=== PATIENT | female | born 1995 | race Caucasian/White ===

== ENCOUNTER 2020-11-25 01:07 | Inpatient (IN) | payer BC ==
[2020-11-25 04:01] LABS: CORONAVIRUS COVID-19 NAA NEGATIVE (NEGATIVE)
[2020-11-25] MEDS ORDERED: Sodium Chloride 0.9% 1,000 ML IV SCH (06:00)
[2020-11-25] MEDS ORDERED: Sodium Chloride 0.9% 10 ML Syringe FLUSH PRN (07:34)
[2020-11-25] MEDS ORDERED: fentaNYL 100 MCG/2 ML SDV IVPUSH PRN (07:34)
[2020-11-25] MEDS ORDERED: Ondansetron 4 MG Tab.DIS PO PRN (07:34)
--- NOTE | 2020-11-25 07:44 | PCM.LDHP ---
L&D History of Present Illness - General Date of Service: 11/25/20 (PROM) Admit Problem/Dx: Patient Status Order with Admit Dx/Problem 11/25/20 02:39 Admission Status [Patient Status] [ADT] Routine 11/25/20 07:34 Patient Status [ADT] Routine Admission Diagnosis/Problem Admission Diagnosis/Problem Labor established Source of Information: Patient History Limitations: Reports: No Limitations - History of Present Illness Introduction:: This 25 year old G1 who is 36 6/7 weeks presented with rupture of membranes at home without labor. She describes a large amount of clear fluid. OVer the night a few irregular contractions. GBS status unknown. Antibiotics started is allergic to PCN, Clindamycin used instead. At 0600 Pitocin augmentation started. Contractions are now increasing. Had her first Covid vaccine November 14 HX of asthma and anxiety non smoker Labs: GBS unknown HIV neg Rubella immune ABO O pos Timing/Duration: Reports: minutes: (2-3) Location, : Reports: Abdomen, Lower back Quality: Reports: Pressure Severity: Moderate Improves with: Reports: Movement Worsens with: Reports: None - Related Data Allergies/Adverse Reactions: Allergies Allergy/AdvReac Type Severity Reaction Status Date / Time amoxicillin Allergy Hives Verified 11/25/20 01:48 Home Medications: Home Meds Cetirizine [ZyrTEC] 10 mg PO DAILY 11/25/20 [History] Doxylamine Succinate [Unisom Sleep Aid] 25 mg PO BEDTIME PRN 11/25/20 [History] Ondansetron [Ondansetron ODT] 4 mg PO Q6H PRN 11/25/20 [History] Pnv No.103/Folic/Om3s/Fish Oil [ Gummies] 1 tab PO DAILY 11/25/20 [History] Past Medical History Respiratory History: Reports: Asthma 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 (Approximate): ([facility] 12/17/20) Psychiatric History: Reports: Depression - Past Surgical History HEENT Surgical History: Reports: Tonsillectomy Social & Family History - Family History Family Medical History: No Pertinent Family History - Tobacco Use Tobacco Use Status *Q: Never Tobacco User Second Hand Smoke Exposure: No - Caffeine Use Caffeine Use: Reports: Coffee, Soda - Recreational Drug Use Recreational Drug Use: No H&P Review of Systems - Review of Systems: Review Of Systems: See Below General: Reports: No Symptoms HEENT: Reports: No Symptoms Pulmonary: Reports: No Symptoms Cardiovascular: Reports: No Symptoms Gastrointestinal: Reports: No Symptoms Genitourinary: Reports: No Symptoms Musculoskeletal: Reports: No Symptoms Skin: Reports: No Symptoms Psychiatric: Reports: Anxiety Neurological: Reports: No Symptoms Hematologic/Lymphatic: Reports: No Symptoms Immunologic: Reports: No Symptoms L&D Exam - Exam Exam: See Below - Vital Signs Vital Signs: Last Vital Signs Temp 98.9 F 11/25/20 06:10 Pulse 93 11/25/20 06:10 Resp 16 11/25/20 06:10 BP 135/83 11/25/20 06:10 Pulse Ox 99 11/25/20 06:10 Weight: 203 lb - OB Specific Contraction Duration (sec): 40-90 Contraction Frequency (min): 2-3 Contraction Intensity: Mild to Moderate Movement: Active Heart Tones: Present Heart Rate (FHR) Variability: Moderate (6-25 bmp) Presentation: Vertex Estimated Weight: 7 pounds - Turcios Score Turcios Score Cervix Position: Midposition Turcios Score Consistency: Soft Turcios Score Effacement: 51-70% Turcios Score Dilation: 1-2 cm Turcios Score Infant's Station: -1 ,0 Turcios Score Total: 8 - Exam General: Alert, Oriented HEENT: PERRLA Neck: Supple Lungs: Normal Respiratory Effort Cardiovascular: Regular Rate GI/Abdominal Exam: Soft Rectal Exam: Normal Exam Genitourinary: Enlarged uterus Back Exam: Normal Inspection Extremities: No Pedal Edema Skin: Warm, Dry, Intact Neurological: Cranial Nerves Intact - Patient Data Lab Results Last 24 hrs: Laboratory Results - last 24 hr 11/25/20 11/25/20 11/25/20 Range/Units 01:26 01:27 02:40 WBC (4.5-11.0) K/uL RBC (3.30-5.50) M/uL Hgb (12.0-15.0) g/dL Hct (36.0-48.0) % MCV (80-98) fL MCH (27-31) pg MCHC (32-36) % Plt Count (150-400) K/uL Neut % (Auto) (36-66) % Lymph % (Auto) (24-44) % Arroyo % (Auto) (2-6) % Eos % (Auto) (2-4) % Baso % (Auto) (0-1) % Urine Color Yellow (YELLOW) Urine Appearance Turbid A (CLEAR) Urine pH 7.0 (5.0-8.0) Ur Specific Era 1.015 (1.008-1.030) Urine Protein 100 H (NEGATIVE) mg/dL Urine Glucose (UA) Negative (NEGATIVE) mg/dL Urine Ketones Negative (NEGATIVE) mg/dL Urine Occult Blood Trace-lysed H (NEGATIVE) Urine Nitrite Negative (NEGATIVE) Urine Bilirubin Negative (NEGATIVE) Urine Urobilinogen 0.2 (0.2-1.0) EU/dL Ur Leukocyte Esterase Negative (NEGATIVE) Urine RBC 0-5 (0-5) Urine WBC 0-5 (0-5) Ur Epithelial Cells Many Amorphous Sediment Few Urine Bacteria Many Urine Mucus Not seen Membrane Rupture Positive H (NEGATIVE) Urine Opiates Screen (NEGATIVE) Ur Oxycodone Screen (NEGATIVE) Urine Methadone Screen (NEGATIVE) Ur Propoxyphene Screen (NEGATIVE) Ur Barbiturates Screen (NEGATIVE) Ur Tricyclics Screen (NEGATIVE) Ur Phencyclidine Scrn (NEGATIVE) Ur Amphetamine Screen (NEGATIVE) U Methamphetamines Scrn (NEGATIVE) Urine MDMA Screen (NEGATIVE) U Benzodiazepines Scrn (NEGATIVE) U Cocaine Metab Screen (NEGATIVE) U Marijuana (THC) Screen (NEGATIVE) Influenza Type A RNA Negative (NEGATIVE) RSV RNA (INAAT) Negative (NEGATIVE) Influenza Type B RNA Negative (NEGATIVE) SARS-CoV-2 RNA (LULA) Negative (NEGATIVE) 11/25/20 11/25/20 Range/Units 02:56 02:57 WBC 10.6 (4.5-11.0) K/uL RBC 4.54 (3.30-5.50) M/uL Hgb 14.0 (12.0-15.0) g/dL Hct 42.9 (36.0-48.0) % MCV 95 (80-98) fL MCH 31 (27-31) pg MCHC 33 (32-36) % Plt Count 290 (150-400) K/uL Neut % (Auto) 60 (36-66) % Lymph % (Auto) 26 (24-44) % Arroyo % (Auto) 11 H (2-6) % Eos % (Auto) 2 (2-4) % Baso % (Auto) 1 (0-1) % Urine Color (YELLOW) Urine Appearance (CLEAR) Urine pH (5.0-8.0) Ur Specific Era (1.008-1.030) Urine Protein (NEGATIVE) mg/dL Urine Glucose (UA) (NEGATIVE) mg/dL Urine Ketones (NEGATIVE) mg/dL Urine Occult Blood (NEGATIVE) Urine Nitrite (NEGATIVE) Urine Bilirubin (NEGATIVE) Urine Urobilinogen (0.2-1.0) EU/dL Ur Leukocyte Esterase (NEGATIVE) Urine RBC (0-5) Urine WBC (0-5) Ur Epithelial Cells Amorphous Sediment Urine Bacteria Urine Mucus Membrane Rupture (NEGATIVE) Urine Opiates Screen Negative (NEGATIVE) Ur Oxycodone Screen Negative (NEGATIVE) Urine Methadone Screen Negative (NEGATIVE) Ur Propoxyphene Screen Negative (NEGATIVE) Ur Barbiturates Screen Negative (NEGATIVE) Ur Tricyclics Screen Negative (NEGATIVE) Ur Phencyclidine Scrn Negative (NEGATIVE) Ur Amphetamine Screen Negative (NEGATIVE) U Methamphetamines Scrn Negative (NEGATIVE) Urine MDMA Screen Negative (NEGATIVE) U Benzodiazepines Scrn Negative (NEGATIVE) U Cocaine Metab Screen Negative (NEGATIVE) U Marijuana (THC) Screen Negative (NEGATIVE) Influenza Type A RNA (NEGATIVE) RSV RNA (INAAT) (NEGATIVE) Influenza Type B RNA (NEGATIVE) SARS-CoV-2 RNA (LULA) (NEGATIVE) Result Diagrams: 11/25/20 02:56 - Problem List (1) Anxiety SNOMED Code(s): 44926738 ICD Code: F41.9 - ANXIETY DISORDER, UNSPECIFIED Status: Acute Current Vi sit: Yes (2) Asthma SNOMED Code(s): 466094936 ICD Code: J45.909 - UNSPECIFIED ASTHMA, UNCOMPLICATED Status: Acute Current Visit: Yes Qualifiers: Asthma severity: mild Asthma persistence: intermittent Asthma complication type: uncomplicated Qualified Code(s): J45.20 - Mild intermittent asthma, uncomplicated (3) SNOMED Code(s): 42747301 ICD Code: Z34.90 - ENCNTR FOR SUPRVSN OF NORMAL , UNSP, UNSP TRIMESTER Status: Acute Current Visit: Yes Qualifiers: Weeks of gestation: 36 weeks Qualified Code(s): Z3A.36 - 36 weeks gestation of (4) PROM (premature rupture of membranes) SNOMED Code(s): 52941744 ICD Code: O42.90 - NICOLE ROM, 7TH0 BETW RUPT & ONST LABR, UNSP WEEKS OF GEST Status: Acute Current Visit: Yes Qualifiers: PROM gestational age: full term Problem List Initiated/Reviewed/Updated: Yes Orders Last 24hrs: Active Orders 24 hr Category Date Time Status Patient Status [ADT] Routine ADT 11/25/20 07:34 Ordered Antiembolic Devices [RC] .Routine Care 11/25/20 07:36 Ordered Communication Order [RC] ASDIRECTED Care 11/25/20 07:34 Ordered Communication Order [RC] Per Unit Routine Care 11/25/20 07:38 Ordered Communication Order [RC] Per Unit Routine Care 11/25/20 07:38 Ordered Communication Order [RC] Per Unit Routine Care 11/25/20 07:38 Ordered Heart Tones [RC] PER UNIT ROUTINE Care 11/25/20 07:34 Ordered Non Stress Test [RC] Click to Edit Care 11/25/20 07:34 Ordered May Shower [RC] ASDIRECTED Care 11/25/20 07:34 Ordered Nitrous Oxide Delivery [RC] ASDIRECTED Care 11/25/20 07:38 Ordered Notify Provider Vital Signs [RC] PRN Care 11/25/20 07:34 Ordered Notify Provider [RC] PRN Care 11/25/20 07:34 Ordered OB Check [OM.PC] Click to Edit Care 11/25/20 01:25 Ordered Oxygen Therapy [RC] ASDIRECTED Care 11/25/20 07:38 Ordered Pulse Oximetry [RC] ASDIRECTED Care 11/25/20 07:38 Ordered Up ad Judith [RC] ASDIRECTED Care 11/25/20 07:34 Ordered VTE/DVT Education [RC] Click to Edit Care 11/25/20 07:36 Ordered Verify Patient Consent Obtain [RC] ASDIRECTED Care 11/25/20 07:38 Ordered Vital Signs [RC] PER UNIT ROUTINE Care 11/25/20 07:34 Ordered Vital Signs [RC] PER UNIT ROUTINE Care 11/25/20 07:38 Ordered Clear Liquid Diet [DIET] Diet 11/25/20 Lunch Ordered Clindamycin Phosphate [Cleocin] 900 mg Med 11/25/20 11:00 Active Sodium Chloride 0.9% [Normal Saline] 100 ml IV Q8H Ondansetron [Zofran ODT] Med 11/25/20 07:34 Ordered 4 mg PO Q4H PRN Oxytocin/Normal Saline [Pitocin in NS 20 Units/1,000 ML Med 11/25/20 06:00 Active ] 20 unit in 1,000 ml IV TITRATE Sodium Chloride 0.9% [Normal Saline] 1,000 ml Med 11/25/20 06:00 Active IV ASDIRECTED Sodium Chloride 0.9% [Saline Flush] Med 11/25/20 07:34 Ordered 10 ml FLUSH ASDIRECTED PRN fentaNYL [Sublimaze] Med 11/25/20 07:34 Ordered 100 mcg IVPUSH Q1H PRN DVT/VTE Prophylaxis Reflex [OM.PC] Routine Oth 11/25/20 07:34 Ordered Isolation [COMM] Stat Ot 11/25/20 02:41 Ordered Saline Lock Insert [OM.PC] Routine Oth 11/25/20 07:34 Ordered Resuscitation Status Routine Resus Stat 11/25/20 07:34 Ordered Medication Orders Fentanyl (Fentanyl 100 Mcg/2 Ml Sdv) 100 mcg IVPUSH Q1H PRN PRN Reason: Pain (moderate 4-6) Oxytocin/Sodium Chloride (Pitocin In Ns 20 Units/1,000 Ml) 20 unit in 1,000 mls @ 3 mls/hr IV TITRATE CURTIS; Protocol Last Admin: 11/25/20 06:09 Dose: 1 munits/min, 3 mls/hr Documented by: MAE Sodium Chloride (Normal Saline) 1,000 mls @ 0 mls/hr IV ASDIRECTED [facility] Last Admin: 11/25/20 06:15 Dose: 25 mls/hr Documented by: MAE Clindamycin Phosphate 900 mg/ (Sodium Chloride) 106 mls @ 200 mls/hr IV Q8H CURTIS Ondansetron HCl (Ondansetron 4 Mg Tab.Dis) 4 mg PO Q4H PRN PRN Reason: Nausea/Vomiting Sodium Chloride (Sodium Chloride 0.9% 10 Ml Syringe) 10 ml FLUSH ASDIRECTED PRN PRN Reason: Keep Vein Open Assessment/Plan Comment:: 11/25/20 25 year old G1 36 6/7 week with PROM with labor augmentation with Pitocin unknown GBS status neg Covid Plan Pitocin for contractions Clindamycin for GBS Pain management per her request
[2020-11-25] MEDS ORDERED: Sodium Chloride 0.9% 1,000 ML IV ONE (08:44)
--- NOTE | 2020-11-25 10:03 | PCM.PNLD ---
Labor Progress Note - VS & Meds Vital Signs: Last Vital Signs Temp 98.5 F 11/25/20 07:30 Pulse 89 11/25/20 07:30 Resp 18 11/25/20 07:30 BP 133/78 11/25/20 07:30 Pulse Ox 96 11/25/20 07:30 Active Medications: Current Medications Fentanyl (Fentanyl 100 Mcg/2 Ml Sdv) 100 mcg IVPUSH Q1H PRN PRN Reason: Pain (moderate 4-6) Oxytocin/Sodium Chloride (Pitocin In Ns 20 Units/1,000 Ml) 20 unit in 1,000 mls @ 3 mls/hr IV TITRATE CURTIS; Protocol Last Admin: 11/25/20 06:09 Dose: 1 munits/min, 3 mls/hr Documented by: Sodium Chloride (Normal Saline) 1,000 mls @ 0 mls/hr IV ASDIRECTED [facility]TIS Last Admin: 11/25/20 06:15 Dose: 25 mls/hr Documented by: Clindamycin Phosphate 900 mg/ (Sodium Chloride) 106 mls @ 200 mls/hr IV Q8H CURTIS Ondansetron HCl (Ondansetron 4 Mg Tab.Dis) 4 mg PO Q4H PRN PRN Reason: Nausea/Vomiting Sodium Chloride (Sodium Chloride 0.9% 10 Ml Syringe) 10 ml FLUSH ASDIRECTED PRN PRN Reason: Keep Vein Open Discontinued Medications Clindamycin Phosphate 900 mg/ (Sodium Chloride) 56 mls @ 100 mls/hr IV Q8HR CURTIS Last Admin: 11/25/20 06:16 Dose: Not Given Documented by: Sodium Chloride (Normal Saline) 1,000 mls @ 999 mls/hr IV .BOLUS ONE Stop: 11/25/20 09:44 - Uterine Contractions Uterine Monitoring Mode: Palpation Contraction Frequency (min): 3-4 Contraction Duration (sec): 90-120 Contraction Intensity: Moderate Uterine Resting Tone: Soft - Monitoring Monitor Mode: Doppler/Auscultation Heart Rate (FHR) Baseline: 145 Heart Rate (FHR) Variability: Moderate (6-25 bmp) Accelerations: Present, 15x15 Decelerations: Late, Variable, Prolonged (>2x10 min) Strip Review: Category III - Vaginal Exam Dilation (cm): 3 Effacement (Percent): 75 Station: 0 Cervical Position: Midposition Sterile Vaginal Exam Performed By: Sara Rangel - Labor Progress (Free Text) Labor Progress: 11/25/20 PROM at 0030 last night. Pitocin augmentation this morning. contractions every 3 minutes. baby not tolerating contractions. Pitocin off, bolus fluids, position changes. Used Nitrous for pain management. Cat three strip Assessment Non reassuring strip in a G1 with PROM unknown GBS Plan c section delivery OB crew called and consent reviewed.
[2020-11-25] MEDS ORDERED: Oxytocin 10 Units/1 ML SDV ONE ×2 (10:10→10:13)
[2020-11-25] MEDS ORDERED: cefOXitin 1 GM Vial ONE (10:11)
[2020-11-25] MEDS ORDERED: ePHEDrine 50 MG/ML SDV ONE (10:12)
[2020-11-25] MEDS ORDERED: Meropenem 500 MG SDV ONE ×2 (10:12→10:15)
[2020-11-25] MEDS ORDERED: cefOXitin 2 GM Vial ONE (10:15)
[2020-11-25] MEDS ORDERED: Clindamycin Phosphate 900 MG in Sodium Chloride 0.9% 100 ML IV SCH (11:00)
[2020-11-25] MEDS ORDERED: Lactated Ringers 1,000 ML ONE (11:07)
[2020-11-25] MEDS ORDERED: Lidocaine 1% 0 ML ONE (11:14)
[2020-11-25] MEDS ORDERED: hydrOXYzine HCL 100 MG/2 ML SDV IM PRN (12:23)
[2020-11-25] MEDS ORDERED: Ondansetron 4 MG/2 ML SDV IVPUSH PRN (12:26)
[2020-11-25] MEDS ORDERED: HYDROmorphone/Normal Saline 15 MG/30 ML PCA IV PRN (12:27)
[2020-11-25] MEDS: HYDROmorphone 2 MG Tab PO PRN (12:32)
[2020-11-25] MEDS: Dextrose 5%-Lactated Ringers 1,000 ML IV SCH ×2 (12:39→19:33)
[2020-11-25] MEDS ORDERED: Naloxone 0.4 MG/ML SDV IV PRN (13:00)
[2020-11-25] MEDS: Acetaminophen 500 MG Tab PO SCH ×2 (13:06→19:48)
[2020-11-25] MEDS: cefOXitin 2 GM in Sodium Chloride 0.9% 50 ML IV SCH ×2 (16:22→21:43)
[2020-11-25] MEDS: Ibuprofen 600 MG Tab PO SCH ×2 (16:23→23:10)
[2020-11-26] MEDS: Dextrose 5%-Lactated Ringers 1,000 ML IV SCH (00:59)
[2020-11-26] MEDS: Acetaminophen 500 MG Tab PO SCH ×5 (01:23→18:30)
[2020-11-26] MEDS: cefOXitin 2 GM in Sodium Chloride 0.9% 50 ML IV SCH ×4 (04:13→21:57)
[2020-11-26] MEDS: Ibuprofen 600 MG Tab PO SCH ×4 (04:15→21:57)
[2020-11-26] MEDS ORDERED: Dextrose 5%-Lactated Ringers 1,000 ML IV SCH (07:19)
[2020-11-26] MEDS: Docusate Sodium 100 MG Cap PO SCH ×2 (09:21→20:35)
--- NOTE | 2020-11-26 09:31 | PN ---
DATE OF SERVICE: 11/26/2020 SUBJECTIVE: Alexis is postop day 1 following a section. She reports her pain is better controlled. 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 OBJECTIVE: GENERAL: Alexis is a pleasant 25-year-old female. She is alert and orientated. VITAL SIGNS: Last checked at 11/25/2020 at 1900, TPRs; 96, 93, 18, blood pressure 128/66, and her oximetry was checked on 11/26/2020 at 0725 at 97%. HEENT: Negative. NECK: Supple. HEART: Regular rate and rhythm. LUNGS: Clear. ABDOMEN: Dressing dry and in intact. EXTREMITIES: Without peripheral edema. ASSESSMENT: section for near-term with ruptured membranes and late decelerations. Date 11/25/2020. Surgeon: Danie Butterfield MD. PLAN: 1. Decrease IV to 100 mL per hour. 2. Regular diet. 3. Discontinue Diaz. 4. 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 5. May shower. 6. Saline lock IV if oral intake is 1000 mL. 7. Colace 100 mg b.i.d. orally. 8. We will evaluate p.r.n. or in the a.m. Lydia Arguelles PA-C /[id number]
[2020-11-26] MEDS: HYDROmorphone 2 MG Tab PO PRN ×3 (11:55→20:35)
--- NOTE | 2020-11-26 15:52 | OR ---
DATE OF PROCEDURE: 11/25/2020 SURGEON: Danie Butterfield MD PREOPERATIVE DIAGNOSIS: Near-term with ruptured membranes and development of late decelerations. POSTOPERATIVE DIAGNOSIS: Near-term with ruptured membranes and development of late decelerations. OPERATIVE PROCEDURE: section ([id number]). ANESTHESIA: Spinal. LANGUAGE SPECIALIST: Marley Westbrook CNM. INDICATIONS FOR PROCEDURE: This is a 25-year-old presenting with rupture of membranes early this morning. She has only progressed roughly 1 cm and during onset of labor. The patient now is noted to have some late decelerations. Due to this, decision was made to proceed with a section. Potential risks of the procedure were reviewed with the patient. She wishes to proceed. DETAILS OF PROCEDURE: The patient was taken to the operating room and after spinal anesthetic was placed, was positioned in the supine position with a roll underneath the right hip. A Diaz catheter was inserted, and the abdomen was prepped and draped. A Pfannenstiel incision was then made and carried down through the skin and subcutaneous tissue and rectus sheath. Subrectus sheath flaps were then raised superiorly and inferiorly in the midline. Peritoneum was then divided and the peritoneal reflection of the bladder on the uterus was reflected downward. Low transverse uterine segment incision was made. Of note, the placenta was immediately underneath the incision. This allowed rapid entry into the area of the uterine cavity, however, and a viable female was then easily delivered through a vertex presentation. Cord was clamped and cut. Routine care given off the field per Marley Westbrook CNM. The placenta and membranes were then delivered without difficulty. The patient was given IV and intrauterine Pitocin and IV cefoxitin. Good uterine contractions were noted. The uterus remained closed with 2 layers of 2-0 Vicryl stitch as was the peritoneal reflection of bladder on the uterus. Midline peritoneum and musculature were then approximated with a #2 Vicryl stitch as was the anterior rectus sheath. Subcutaneous tissue was approximated with some 2-0 Vicryl stitch. Subdermal tissues with 4-0 Vicryl stitch and the subcuticular stitch with 4-0 Vicryl stitch followed by surgical glue. The patient and mother were both taken from the operating room in satisfactory condition. Per ACOG guidelines, the assistance per nurse econometrics professor, Marley Westbrook, was indicated and necessary. Danie Butterfield MD /[id number]
[2020-11-27] MEDS: Acetaminophen 500 MG Tab PO SCH ×5 (00:31→23:45)
[2020-11-27] MEDS: HYDROmorphone 2 MG Tab PO PRN ×4 (00:31→23:45)
[2020-11-27] MEDS: Ibuprofen 600 MG Tab PO SCH ×4 (03:54→21:25)
[2020-11-27] MEDS: cefOXitin 2 GM in Sodium Chloride 0.9% 50 ML IV SCH (03:54)
[2020-11-27] MEDS: Docusate Sodium 100 MG Cap PO SCH ×2 (08:38→21:25)
--- NOTE | 2020-11-27 10:39 | PN ---
DATE OF SERVICE: 11/27/2020 SUBJECTIVE: Alexis reports her pain is controlled. Right now, it is a 3/10. She has been up ambulating, voiding without difficulty. Vital signs have been stable. REVIEW OF SYSTEMS: Remainder of review of systems negative for any pertinent positives and negatives. OBJECTIVE: GENERAL: Alexis is a pleasant 25-year-old female. She is alert and orientated. VITAL SIGNS: TPR 96.4, 87, 18, blood pressure 141/76. HEENT: Negative. NECK: Supple. HEART: Regular rate and rhythm. LUNGS: Clear. ABDOMEN: Negative. Incision looks good. It is glued and clean and dry. She is wearing abdominal binder. EXTREMITIES: Without peripheral edema. ASSESSMENT: section on 11/25/2020 for near-term with ruptured membranes and development of late deceleration. Date of procedure: 11/25/2020. Surgeon: Danie Butterfield MD. PLAN: 1. Remove saline lock. 2. Continue ambulation and use of incentive spirometer. 3. We will evaluate p.r.n. or in a.m. Lydia Arguelles PA-C /[id number]
[2020-11-27] MEDS ORDERED: Lanolin 100% Cream 40 GM Tube TOP PRN (14:24)
[2020-11-28] MEDS: Ibuprofen 600 MG Tab PO SCH ×2 (03:07→09:38)
[2020-11-28] MEDS: Acetaminophen 500 MG Tab PO SCH (06:36)
[2020-11-28] MEDS: HYDROmorphone 2 MG Tab PO PRN (09:38)
[2020-11-28] MEDS: Docusate Sodium 100 MG Cap PO SCH (09:38)
--- NOTE | 2020-11-29 07:25 | DISCH ---
ADMISSION DIAGNOSES: 1. Premature rupture of membranes. 2. 36-6/7 weeks . 3. Late deceleration. DISCHARGE DIAGNOSIS: section. POSTOPERATIVE DIAGNOSIS: Near-term with ruptured membranes and development of late deceleration. Date of procedure, 11/25/2020. 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 She progressed to approximately 1 cm and was noted to have late decelerations. After preoperative evaluation and discussion of possible risks and possible complications, she wishes to proceed with section. HOSPITAL COURSE: No operative complications. Delivery of viable female. On postoperative day 1, IV was decreased to 100 mL per hour. Diaz catheter discontinued. Regular diet, and she was started on oral pain medications. On postoperative day 2, saline lock was removed. Pain was controlled with oxycodone, and in the evening, she had 2 bowel movements. She was able to be discharged to home without any complications on 11/28/2020. PHYSICAL EXAMINATION: GENERAL: Alexis Vann is a pleasant 25-year-old female. She is alert and orientated. Height is 5 feet 1.8 inches. Weight is 202 pounds. VITAL SIGNS: TPR 96.9, 81, 16. Blood pressure 135/72. HEENT: Negative. NECK: Supple. HEART: Regular rate and rhythm. LUNGS: Clear. ABDOMEN: incision is glued, clean, dry, healing well. DISPOSITION: Discharged to home. CONDITION: Stable and improving. FOLLOWUP APPOINTMENT: With Lydia Arguelles PA-C, on 12/04/2020 at 10 a.m. HOME MEDICATIONS: 1. Colace 100 mg oral b.i.d., #60. 2. Dilaudid 2 mg every 6 hours p.r.n. pain, #28. 3. Ibuprofen 600 mg oral q.6 hours p.r.n. pain, #50. 4. Tylenol Extra Strength 1000 mg every 6 hours p.r.n. pain, #100. 5. She is to resume home medication of Zyrtec 10 mg oral daily and vitamins. 6. Zofran 4 mg every 6 hours p.r.n. nausea. 7. Unisom sleep aid p.r.n. DIET: Usual diet as tolerated. Drink 8 to 10 glasses of water a day. ACTIVITY: As tolerated. No lifting over 10 pounds for 6 weeks, but you can lift baby in car seat. Shower/bathing: May shower. No tub bathing, swimming until incision is healed about 6 to 8 weeks. Notify provider if any fever, increased pain, swelling, redness, drainage, nausea, vomiting. Wound incision care: Keep site clean and dry. Wear abdominal binder for 6 weeks. /[id number]
== END 2020-11-28 11:37 | disposition home or self-care (01) | DRG 540 ==
LOC: JP.OBCHECK 01:07 → JP.OB 03:38 → OBSVTOIN 10:44 → JP.OB 10:44 → JP.MS 10:45
PROVIDERS: ADMIT Nurse Practitioner Family; ATTEND Nurse Practitioner Family
PROC: 10D00Z1 Extraction of Products of Conception, Low, Open Approach (ICD-10-PCS; principal; 2020-11-25)
DX: O42.02 Full-term premature rupture of membranes, onset of labor within 24 hours of rupture (principal); Z37.0 Single live birth; O76 Abnormality in fetal heart rate and rhythm complicating labor and delivery; Z20.822 Contact with and (suspected) exposure to COVID-19; O99.62 Diseases of the digestive system complicating childbirth; J45.20 Mild intermittent asthma, uncomplicated; Z88.0 Allergy status to penicillin; Z3A.36 36 weeks gestation of pregnancy
CPT/HCPCS: 0241U; 36415; 51702; 80305-QW; 81001; 84112; 85025; 88307; 94762; 99211; A9270-GY; J0694; J1170; J2185; J2405; J2590; J3410; J3490; J7030; J7120; J7121

== ENCOUNTER 2020-12-02 13:42 | Emergency (ER) | payer BC ==
[2020-12-02] MEDS ORDERED: Sulfamethoxazole/Trimethoprim 800-160 MG Tab PO ONE (14:30)
--- NOTE | 2020-12-02 14:37 | EDM.PDOC ---
ED HPI GENERAL MEDICAL PROBLEM - General Chief Complaint: Genitourinary Problem Stated Complaint: POSSIBLE YEAST INFECTION Time Seen by Provider: 12/02/20 14:25 Source of Information: Reports: Patient, Old Records, RN History Limitations: Reports: No Limitations - History of Present Illness INITIAL COMMENTS - FREE TEXT/NARRATIVE: 25 yo female with recent presents with recent onset of dysuria/frequency. No fever, nausea or flank pain, or fever. Onset: Today, Gradual Onset Date: 12/02/20 Duration: Hour(s):, Constant Location: Reports: Pelvis (urethral). Denies: Back Quality: Reports: Burning Severity: Mild Improves with: Reports: None Worsens with: Reports: Other (? time) Context: Reports: Other (See HPI) Associated Symptoms: Reports: No Other Symptoms. 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: Reports: Other (see below) (none) Abdomen Pain Score (Numeric/FACES): 2 - Related Data Allergies Allergy/AdvReac Type Severity Reaction Status Date / Time amoxicillin Allergy Hives Verified 12/02/20 14:01 Home Meds: Home Meds Cetirizine [ZyrTEC] 10 mg PO DAILY 11/25/20 [History] Doxylamine Succinate [Unisom Sleep Aid] 25 mg PO BEDTIME PRN 11/25/20 [History] Ondansetron [Ondansetron ODT] 4 mg PO Q6H PRN 11/25/20 [History] Pnv No.103/Folic/Om3s/Fish Oil [ Gummies] 1 tab PO DAILY 11/25/20 [History] Acetaminophen [Tylenol Extra Strength] 1,000 mg PO Q6H #100 tablet 11/28/20 [Rx] Docusate Sodium [Colace] 100 mg PO BID #60 cap 11/28/20 [Rx] HYDROmorphone [Dilaudid] 2 mg PO Q6H PRN #28 tablet 11/28/20 [Rx] Ibuprofen [Motrin] 600 mg PO Q6H #50 tablet 11/28/20 [Rx] Lanolin [Lansinoh HPA] 0 gm TOP ASDIRECTED PRN tube 11/28/20 [Rx] Sulfamethoxazole/Trimethoprim [Bactrim Ds Tablet] 1 each PO Q12H #9 tablet 12/02/20 [Rx] Past Medical History Respiratory History: Reports: Asthma 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 Denies: Flank Pain, Hematuria Skin: Reports: Wound (surgical of abdomen wall) ED EXAM, RENAL/ - Physical Exam Exam: See Below Exam Limited By: No Limitations General Appearance: Alert, WD/WN, No Apparent Distress Eye Exam: Bilateral Eye: Normal Inspection Ears: Hearing Grossly Normal Nose: Normal Inspection, No Blood Throat/Mouth: Normal Lips, Normal Teeth, Normal Voice, No Airway Compromise Head: Atraumatic, Normocephalic Neck: Normal Inspection Respiratory/Chest: No Respiratory Distress, No Accessory Muscle Use GI/Abdominal: Soft, Non-Tender. No: Distended Back Exam: No: CVA Tenderness (R), CVA Tenderness (L) Extremities: Normal Inspection Neurological: Alert, Oriented, CN II-XII Intact, Normal Cognition, No Motor/Sensory Deficits Psychiatric: Normal Affect, Normal Mood Skin Exam: Warm, Dry, Normal Color, No Rash, Wound/Incision (surgical wound with no redness or increased warmth) Course - Vital Signs Last Recorded V/S: Last Vital Signs Temp 35.9 C L 12/02/20 14:05 Pulse 80 12/02/20 14:05 Resp 16 12/02/20 14:05 BP 136/85 12/02/20 14:05 Pulse Ox 98 12/02/20 14:05 - Orders/Labs/Meds Orders: Active Orders 24 hr Category Date Time Status CULTURE URINE [RM] Stat Lab 12/02/20 14:28 Received Labs: Laboratory Tests 12/02/20 Range/Units 14:01 Urine Color Yellow (YELLOW) Urine Appearance Turbid A (CLEAR) Urine pH 6.0 (5.0-8.0) Ur Specific [place] >= 1.030 (1.008-1.030) Urine Protein 30 H (NEGATIVE) mg/dL Urine Glucose (UA) Negative (NEGATIVE) mg/dL Urine Ketones Negative (NEGATIVE) mg/dL Urine Occult Blood Moderate H (NEGATIVE) Urine Nitrite Negative (NEGATIVE) Urine Bilirubin Negative (NEGATIVE) Urine Urobilinogen 0.2 (0.2-1.0) EU/dL Ur Leukocyte Esterase Small H (NEGATIVE) Urine RBC 30-40 H (0-5) Urine WBC 40-50 H (0-5) Ur Epithelial Cells Moderate Amorphous Sediment Not seen Urine Bacteria Moderate Urine Mucus Rare Meds: Medications Discontinued Medications Generic Name Dose Route Start Last Admin Trade Name Freq PRN Reason Stop Dose Admin Trimethoprim/Sulfamethoxazole 1 tab 12/02/20 14:30 Sulfamethoxazole/Trimethoprim 800-160 Mg Tab PO 12/02/20 14:31 ONETIME ONE Departure - Departure Time of Disposition: 14:40 Disposition: Home, Self-Care 01 Condition: Good Clinical Impression: Cystitis - Discharge Information *PRESCRIPTION DRUG MONITORING PROGRAM REVIEWED*: Not Applicable *COPY OF PRESCRIPTION DRUG MONITORING REPORT IN PATIENT YOANDY: Not Applicable Prescriptions: Sulfamethoxazole/Trimethoprim [Bactrim Ds Tablet] 1 each PO Q12H #9 tablet Instructions: Urinary Tract Infection, Adult Referrals: Celia Mario CNM [Primary Care Provider] - Additional Instructions: Drink ample amounts of fluids. Take TMP/SMZ every 12 hrs. If not improving by the 4th dose then talk to your provider who can check on your urine culture to guide any need to change antibiotics. Sepsis Event Note (ED) - Evaluation Sepsis Screening Result: No Definite Risk - Focused Exam Vital Signs: Vital Signs Temp Pulse Resp BP Pulse Ox 12/02/20 14:05 35.9 C L 80 16 136/85 98 12/02/20 13:53 35.9 C L 80 16 136/85 98 - My Orders Last 24 Hours: My Active Orders 12/02/20 14:28 CULTURE URINE [RM] Stat - Assessment/Plan Last 24 Hours: My Active Orders 12/02/20 14:28 CULTURE URINE [RM] Stat
[2020-12-02] MEDS ORDERED: Nitrofurantoin Monohydrate/Macrocrystalline 100 MG Cap PO ONE (14:47)
== END 2020-12-02 14:51 | disposition home or self-care (01) ==
LOC: JP.ED 13:42
DX: N30.90 Cystitis, unspecified without hematuria (principal); J45.909 Unspecified asthma, uncomplicated; Z88.0 Allergy status to penicillin
CPT/HCPCS: 81001; 87086; 87088; 87186; 99283; A9270

== ENCOUNTER 2024-04-16 18:08 | Emergency (ER) | payer BC, OTHER | END 2024-04-16 19:22 | disposition home or self-care (01) | LOC: JP.ED 18:08 | DX: Z53.21 Procedure and treatment not carried out due to patient leaving prior to being seen by health care provider (principal) ==